=== PATIENT | male | born 1965 | race African-American/Black ===

== ENCOUNTER 2017-07-29 08:50 | Emergency (ER) | payer SELFPAY ==
[2017-07-29 10:00] VITALS: BP 134/95
[2017-07-29] MEDS ORDERED: IPRATROPIUM/ALBUTEROL SULFATE 3 ML AMPUL.NEB NEB ONE ×2 (10:29)
--- NOTE | 2017-07-29 10:56 | ED Physician Documentation ---
Asthma - HISTORIAN Historian: patient - HPI Stated Complaint: SOA/Cough Chief Complaint: Dyspnea Duration: continues in ED Associated Symptoms:: trouble breathing, shortness of breath, productive cough ( green). denies: fever, hurts to breath Current Asthma Therapy: inhaled nebulizer - ROS CONST: no problems - PAST HX Asthma: other (Normally takes inhaler about every 3-5 days. Now using it 5-7 times a day. ) Lung Disease: asthma Other History: hypertension Surgeries/Procedures: other (rotator cuff surgery) Allergies/Adverse Reactions: Allergies Allergy/AdvReac Type Severity Reaction Status Date / Time shellfish derived Allergy Verified 05/07/16 17:30 Home Medications: Ambulatory Orders Medication Instructions Recorded Lisinopril [Prinivil] 10 mg PO QD 12/10/12 Albuterol Sulfate [ProAir 1 puff INH Q6H PRN 05/07/16 RespiClick] Azithromycin [Zithromax] 250 mg PO DAILY #6 tablet 07/29/17 Prednisone 30 mg PO D #9 tablet 07/29/17 - SOCIAL HX Smoking History: non-smoker Alcohol Use: occasionally Drug Use: none - FAMILY HX Family History: asthma - VITAL SIGNS Vital Signs: Vital Signs Temp Pulse Resp BP Pulse Ox 98.9 F 96 H 20 134/95 99 07/29/17 09:20 07/29/17 09:20 07/29/17 09:20 07/29/17 09:20 07/29/17 09:20 Progress - Progress Progress: 11:28 wheezing is almost gone, patient states that his breathing is back to normal. ED Results Lab/Radiology - Radiology Radiology Impressions: Examination: PA and lateral chest. History: Evaluate lung cedillo. Comparison exam: None available for direct review Findings: PA lateral chest demonstrate a normal cardiac silhouette. No focal infiltrate. Tortuous aorta. No blunting of the costophrenic margins. Osseous structures are appropriate for age. Impression: No acute pulmonary process. - Orders Orders: ED Orders Category Date Time Status CHEST P.A.&LAT 2 VIEWS [RAD] Routine Exams 07/29/17 Ordered CBC/PLATELET/DIFF Routine Lab 07/29/17 Ordered CMP Routine Lab 07/29/17 Ordered Ipratropium/Albuterol Sulfate [Duoneb] Med 07/29/17 10:29 Discontinued 3 ml NEB .STK-MED ONE Ipratropium/Albuterol Sulfate [Duoneb] Med 07/29/17 10:29 Discontinued 3 ml NEB NOW ONE Asthma Physical Exam - EXAM General Appearance: alert EENT: eye inspection normal Neck: nml inspection. No: meningismus Respiratory: speaks full sentences, respiratory distress (mild), wheezes ( expiratory). No: rales, rhonchi CVS: reg rate & rhythm, heart sounds normal, equal pulses, no murmur Skin: color nml, no rash, cyanosis Extremities: non-tender, normal range of motion, no evidence of injury Neuro/Psych: oriented x3, mood/affect nml Discharge Clincal Impression: Acute asthma exacerbation, Bronchitis Prescriptions: Azithromycin [Zithromax] 250 mg PO DAILY #6 tablet Prednisone 30 mg PO D #9 tablet Referrals: Primary Doctor,No [Primary Care Provider] - 2 Days Additional Instructions: Take prednisone and azithromycin as directed. If breathing gets worse come back to the ED. Continue to use your rescue inhaler as instructed every 4 hours as needed. Condition: Stable Disposition: 01 HOME, SELF-CARE Decision to Admit: NO Date of Decison to Admit: 07/29/17 Decision Time: 12:22
--- NOTE | 2017-07-29 13:14 | Diagnostic Imaging Report ---
MEAGAN OCONNELL [facility] [address] [facility].[address] [id number] Report Submission Date: Jul 29, 2017 11:18:21 AM DATA CENTER ARCHITECT Patient Study Name: LUCIANO MONTOYA Date: Jul 29, 2017 11:04:24 AM DATA CENTER ARCHITECT Modality Type: CR Gender: M Description: CHEST : 61 Institution: [facility] Physician: MEAGAN OCONNELL Examination: PA and lateral chest. History: Evaluate lung cedillo. Comparison exam: None available for direct review Findings: PA lateral chest demonstrate a normal cardiac silhouette. No focal infiltrate. Tortuous aorta. No blunting of the costophrenic margins. Osseous structures are appropriate for age. Impression: No acute pulmonary process. Electronically signed on Jul 29, 2017 11:18:21 AM DATA CENTER ARCHITECT by: Adán BAUMANN
== END 2017-07-29 12:35 | disposition home or self-care (01) ==
LOC: ED 08:50
DX: J40 Bronchitis, not specified as acute or chronic (principal); J45.901 Unspecified asthma with (acute) exacerbation
CPT/HCPCS: 71020; 99283

== ENCOUNTER 2018-02-26 05:12 | Emergency (ER) | payer SELFPAY ==
--- NOTE | 2018-02-26 05:34 | ED Physician Documentation ---
Ear Complaints - HISTORIAN Historian: patient - HPI Stated Complaint: Sinus congestion and left ear pain Chief Complaint: Allergies Timing: still present Location of Pain: both ears Severity: mild Associated Symptoms: discharge. denies: fever, chills, dull pain, aching, hearing loss, sore throat Further Comments: yes (He states he started to have sinus congestion and left ear pain x 2 days ago. He denies a fever. He has tried Nasal spray with no relief x 1 hour ago. He has not tried any other meds. He denies any sore throat. He has no sick contacts. No headache.) - ROS CONST: no problems CVS/RESP: none GI/: denies: nausea, vomiting MS/SKIN/LYMPH: denies: rash - PAST HX Past History: other (asthma per report ) Immunizations: UTD Allergies/Adverse Reactions: Allergies Allergy/AdvReac Type Severity Reaction Status Date / Time shellfish derived Allergy Verified 05/07/16 17:30 Home Medications: Ambulatory Orders Medication Instructions Recorded Lisinopril [Prinivil] 10 mg PO QD 12/10/12 Albuterol Sulfate [ProAir 1 puff INH Q6H PRN 05/07/16 RespiClick] Azithromycin [Zithromax] 250 mg PO DAILY #6 tablet 07/29/17 Prednisone 30 mg PO D #9 tablet 07/29/17 - SOCIAL HX Smoking History: non-smoker Alcohol Use: none Drug Use: none - FAMILY HX Family History: No - VITAL SIGNS Vital Signs: Vital Signs Temp Pulse Resp BP Pulse Ox 134/95 07/29/17 09:20 - REVIEWED ASSESSMENTS Nursing Assessment Reviewed: Yes Vitals Reviewed: Yes Ear Complaint Physical Exam - EXAM General Appearance: no acute distress, alert Ear: auricle nml, [employer] police officer.canal nml, left, cerumen. No: loss of landmarks, bulging of TM Mouth/Throat: lips nml, gums nml, pharynx nml Nose: nml inspection Resp/CVS: chest non-tender, breath sounds nml, heart sounds nml, no resp. distress, lungs clear Abdomen: non-tender Skin: nml color, no skin rash Neuro/Psych: oriented x3, mood/affect nml Discharge Clincal Impression: Sinus drainage Referrals: Bee Araiza MD [Primary Care Provider] - 2 Days Comments: 1. Zyrtec 10 mg take 1 by mouth daily 2. Use your nasal spray as directed 3. Follow up with your PCP if you have increased symptoms or fever 4. Return to ER for any increasing symptoms or concerns Condition: Stable Disposition: 01 HOME, SELF-CARE Decision to Admit: NO Date of Decison to Admit: 02/26/18 Decision Time: 05:46
[2018-02-26 05:46] VITALS: BP 135/95
== END 2018-02-26 05:55 | disposition home or self-care (01) ==
LOC: ED 05:12
DX: R09.81 Nasal congestion (principal)
CPT/HCPCS: 99282